=== PATIENT | male | born 1990 | race Caucasian/White ===

== ENCOUNTER 2016-11-12 19:51 | Emergency (ER) | payer SELFPAY ==
[~2016-11-12] VITALS: Ht 167.6 cm; Wt 59.1 kg
[2016-11-12 19:54] VITALS: BP 129/71; TEMP 98.2
[2016-11-12 21:17] LABS: INFLUENZA B NEGATIVE
[2016-11-12 22:17] VITALS: PULSE 77
== END 2016-11-12 22:18 | disposition home or self-care (01) ==
LOC: COL.ER 19:51
PROVIDERS: Nurse Practitioner
DX: J06.9 Acute upper respiratory infection, unspecified (principal); F17.210 Nicotine dependence, cigarettes, uncomplicated; R59.0 Localized enlarged lymph nodes
CPT/HCPCS: J1885

== ENCOUNTER 2016-12-30 20:25 | Emergency (ER) | payer SELFPAY ==
[~2016-12-30] VITALS: Ht 165.1 cm; Wt 61.4 kg
[~2016-12-30 20:25] MED LIST: AMOXICILLIN 8751 TAB PO
[2016-12-30 20:31] VITALS: BP 131/81; PULSE 81; TEMP 98
== END 2016-12-30 21:00 | disposition home or self-care (01) ==
LOC: COL.ER 20:25
DX: S02.92XD Unspecified fracture of facial bones, subsequent encounter for fracture with routine healing (principal); S05.11XD Contusion of eyeball and orbital tissues, right eye, subsequent encounter; Y04.2XXD Assault by strike against or bumped into by another person, subsequent encounter

== ENCOUNTER 2018-07-08 22:04 | Emergency (ER) | payer SELFPAY ==
[~2018-07-08] VITALS: Ht 165.1 cm; Wt 65.9 kg
[2018-07-08 22:17] VITALS: TEMP 69.8
[2018-07-09 00:09] VITALS: BP 115/91; PULSE 99
== END 2018-07-09 00:09 | disposition home or self-care (01) ==
LOC: COL.ER 22:04
DX: S62.316A Displaced fracture of base of fifth metacarpal bone, right hand, initial encounter for closed fracture (principal); W22.03XA Walked into furniture, initial encounter; Y92.59 Other trade areas as the place of occurrence of the external cause
CPT/HCPCS: Q4021; Q4050

== ENCOUNTER 2018-07-13 06:19 | Day surgery (SDC) | payer SELFPAY ==
[~2018-07-13] VITALS: Ht 165.1 cm; Wt 63.2 kg
[2018-07-13 07:36] VITALS: BP 124/81; PULSE 90; TEMP 98.4
[2018-07-13] MEDS ORDERED: COLACE 100100 MG/CAP PO (08:37)
[2018-07-13] MEDS ORDERED: ZOFRAN 4MG T4 MG/TAB PO (08:38)
[2018-07-13] MEDS ORDERED: PERCOCET 325 MG1 TA2 PO (08:40)
[2018-07-13] MEDS ORDERED: MOBIC15 MG PO (08:41)
[2018-07-13 10:26] VITALS: BP 108/71; PULSE 70
--- NOTE | 2018-07-13 10:26 | NUR ---
Patient returns to room 8 per cart from surgery and arouses to verbal stimuli. Temp 97.1 and room air sats 96%. Posterior splint with bulky meghan wrap dressing dry and intact. States that his right arm is numb and he just feels tired. IV fluids infusing. Siderails up x2 and call light in reach. Allowed to rest.
[2018-07-13 10:41] VITALS: BP 94/54; PULSE 54
--- NOTE | 2018-07-13 10:41 | NUR ---
Resting and right arm remains numb due to block placed pre-op. IV fluids infusing and right arm on pillow.
[2018-07-13 10:56] VITALS: BP 98/65; PULSE 48
--- NOTE | 2018-07-13 10:56 | NUR ---
More awake now and eating toast and drinking water. States the right arm is numb. Fingers warm to touch. Denies nausea.
--- NOTE | 2018-07-13 11:05 | NUR ---
IV discontinued and sling placed on the right upper extremity due to block keeping the right arm numb. Andrés wrap dressing dry and splint in place. Patient dresses self.
--- NOTE | 2018-07-13 11:20 | NUR ---
Family in room and given patient instructions for home cares and follow up as scheduled. Instructed to keep the right arm elevated above the level of heart and to begin taking pain medication at bedtime and take with food. Provided scripts for Percocet, Zofran, Mobic, and Colace.
--- NOTE | 2018-07-13 11:35 | NUR ---
Patient has sling on the right upper arm. Dismissed to home per private vehicle driven by family and taken to the front door per wheelchair and assisted into car.
== END 2018-07-13 11:35 | disposition home or self-care (01) ==
LOC: SDCO 06:19
DX: S62.324A Displaced fracture of shaft of fourth metacarpal bone, right hand, initial encounter for closed fracture (principal); S62.326A Displaced fracture of shaft of fifth metacarpal bone, right hand, initial encounter for closed fracture; W22.8XXA Striking against or struck by other objects, initial encounter; F17.210 Nicotine dependence, cigarettes, uncomplicated
CPT/HCPCS: A4565; C1713; J0690; J2250; J2704; J2795; J3010; J7050; J7120